=== PATIENT | female | born 1960 | race Hispanic/Latino ===

== ENCOUNTER 2022-05-29 14:45 | Emergency (ER) | payer OTHER, SELFPAY ==
[2022-05-29 15:08] VITALS: BP 152/78; PULSE 86; RESP 16; TEMP 36.9; O2SAT 100; BMI 22.6
--- NOTE | 2022-05-29 15:23 | DI.RAD.S_ITS ---
PROCEDURE: XR WRIST LT MIN 3V INDICATIONS: dorsum ulnar side pain after fall TECHNIQUE: For views of the wrist were acquired. COMPARISON: None. FINDINGS: Bones: No fractures or dislocations. No suspicious bony lesions. Scaphoid view: Unremarkable Soft tissues: No suspicious soft tissue calcifications. IMPRESSION: Unremarkable left wrist radiographs. No fracture. Approved by: Hossein Price M.D. on 05/29/2022 at 16:03
--- NOTE | 2022-05-29 15:23 | ED.WOUNDLAC ---
HPI - Wound/Laceration General Chief Complaint: Wound/Laceration Stated Complaint: Lip Laceration/Teeth Chipped Time Seen by Provider: 05/29/22 15:16 Source: patient Mode of arrival: Ambulatory Limitations: no limitations History of Present Illness HPI narrative: 61-year-old female. Not on anticoagulation. Was on a hike when she tripped and fell forward. She states she broke her fall by putting her hands out in front of her but she did hit her face on a rock. She chipped her upper tooth and also sustained a laceration to her lower lip. No neck pain. Does have some discomfort to her left wrist but no other extremity injuries. She was ambulatory afterwards. No loss of consciousness. Related Data Allergies Allergy/AdvReac Type Severity Reaction Status Date / Time latex Allergy Hives Verified 05/29/22 15:44 morphine AdvReac Vomiting Verified 05/29/22 15:44 Review of Systems Constitutional Constitutional: Reports system reviewed and no additional complaints, except as documented ENT Ears, Nose, Mouth, and Throat: Reports system reviewed and no additional complaints, except as documented Musculoskeletal Musculoskeletal: Reports system reviewed and no additional complaints, except as documented Integumentary/Breasts Skin/Breast: Reports system reviewed and no additional complaints, except as documented Neurologic Neurologic: Reports system reviewed and no additional complaints, except as documented Hematologic/Lymphatic On Anticoagulants: No Patient History Medical History Healthy adult Social History (Updated 05/29/22 @ 15:25 by Lito Hampton DO) lives independently: Yes Exam Initial Vital Signs Initial Vital Signs: Vital Signs Temperature 98.4 F 05/29/22 15:08 Pulse Rate 86 05/29/22 15:08 Respiratory Rate 16 05/29/22 15:08 Blood Pressure 152/78 H 05/29/22 15:08 Pulse Oximetry 100 05/29/22 15:08 Oxygen Delivery Method 05/29/22 15:08 Const General: cooperative and comfortable HENMT Face and sinus: no maxillary instability Mouth: tongue normal and lip abnormal (1 cm laceration midline lower lip does not cross the border) Teeth and gingiva: other (A chip from tooth 9 ) Resp Effort & Inspection: normal respiratory effort Cardio Rate: regular rate Skin Other: Cut to lower lip Extrem Other: Discomfort with palpation dorsum left wrist ulnar aspect. Her left elbows unremarkable left shoulders unremarkable Procedures Laceration Repair Laceration 1: Description: irregular Depth: simple, single layer Local Anesthetic: lidocaine 1% Amount of anesthesia used (mL): 2 Pre-repair: wound explored, irrigated extensively and deep structures intact Skin layer closed with: other (Chromic) Skin layer suture size: 5-0 Number of sutures: 5 Technique: simple, interrupted Course Orders Ordered: ED Orders 05/29/22 15:23 XR wrist LT min 3V Stat Vital Signs Vital signs: Vital Signs - 8 hr 05/29/22 15:08 05/29/22 16:14 Temperature 98.4 F Pulse Rate 86 82 Respiratory Rate 16 16 Blood Pressure 152/78 H 142/92 H Pulse Oximetry 100 100 Oxygen Delivery Method Room Air Room Air MDM - Wound/Laceration Imaging Data Extremity x-ray #1: Radiologist's Impression: [address] [address] XRay Report Signed Patient: Sherri Garber MR#: [id number] : 1960 Acct:[id number] Age/Sex: 61 / F Date of Service: 05/29/22 Loc: ED Accession Number: [id number] ?? Procedure: XR wrist LT min 3V Ordering Provider: Lito aHmpton D.O. PROCEDURE:? XR WRIST LT MIN 3V ? INDICATIONS: dorsum ulnar side pain after fall ? TECHNIQUE:? For views of the wrist were acquired.? ? COMPARISON:? None. ? FINDINGS:? ? Bones:? No fractures or dislocations.? No suspicious bony lesions.? ? Scaphoid view:? Unremarkable ? Soft tissues:? No suspicious soft tissue calcifications.? ? IMPRESSION:? Unremarkable left wrist radiographs.? No fracture. ? ? ? Approved by: Hossein Price M.D. on 05/29/2022 at 16:03? [facility] Narrative Medical decision making narrative: Patient does have a chipped upper incisor. Maxilla is stable. We did discuss that she needs to follow up with her dentist with this. I feel that we can hold on any radiologic studies of this. Her neck was cleared by nexus criteria. She does have a laceration of her lower lip that does not cross the vermilion border. This was closed as described above. She was having left wrist discomfort. There was no fractures noted on the x-rays. Patient was given care instructions and return precautions. She expressed understanding and agreement. Discharge Plan Departure Patient Disposition: Home Clinical Impression: Laceration of lip, Left wrist sprain, Chipped tooth Instructions: DI for Laceration Repair Activity Restrictions/Additional Instructions: The stitches that were placed today will come out on their own. You can put topical antibiotic ointment over the area or regular Vaseline. Be careful with brushing her teeth. You can eat and drink like normal. I do recommend putting ice over the bottom lip. I do recommend you follow-up with a dentist regarding your chipped tooth. Return to the emergency department for any new or worsening symptoms. Referrals: Aubrie Bonilla DO [Primary Care Provider] -
[2022-05-29 16:14] VITALS: BP 142/92; PULSE 82; RESP 16; O2SAT 100
[2022-05-29 17:33] VITALS: BP 152/79; PULSE 88; RESP 18; O2SAT 100
== END 2022-05-29 17:30 | disposition home or self-care (01) ==
PROVIDERS: Emergency Provider Emergency Medicine; PCP Family Medicine
DX: S01.511A Laceration without foreign body of lip, initial encounter (principal); S63.502A Unspecified sprain of left wrist, initial encounter; S02.5XXA Fracture of tooth (traumatic), initial encounter for closed fracture; W01.10XA Fall on same level from slipping, tripping and stumbling with subsequent striking against unspecified object, initial encounter
CPT/HCPCS: 12011; 73110; 99283